=== PATIENT | male | born 1980 ===

== ENCOUNTER 2018-03-14 11:54 | Emergency (ER) | payer OTHER ==
[2018-03-14 11:57] VITALS: BMI 26.1
[2018-03-14 12:00] VITALS: O2SAT 99
--- NOTE | 2018-03-14 12:42 | ED PDOC ---
HPI: Back Time Seen by Provider: 03/14/18 12:14 Chief Complaint (Nursing): Back Pain Chief Complaint (Provider): Back Pain History Per: Patient History/Exam Limitations: no limitations Onset/Duration Of Symptoms: Days (since 20:00 yesterday) Current Symptoms Are (Timing): Still Present Additional Complaint(s): 37 year old male presents to the ED complaining of non-radiating right sided lower back pain since 20:00 yesterday. Patient states he had difficulty standing up from a seated position today, prompting ED evaluation. He describes the pain as a pulsating and squeezing pain, which is worse with movement and changing positions. Patient denies any fall, history of back surgery, or trauma. He indicates when pain is severe, he feels as if his legs will buckle. Denies fever, chest pain, abdominal pain, SOB, saddle anesthesia, numbness, weakness, n/v/d, or urinary symptoms(contrary to triage). 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 PMD: none Past Medical History Reviewed: Historical Data, Nursing Documentation, Vital Signs Vital Signs: Last Vital Signs Temp 98.1 F 03/14/18 11:57 Pulse 81 03/14/18 11:57 Resp 17 03/14/18 11:57 BP 128/76 03/14/18 11:57 Pulse Ox 99 03/14/18 11:57 - Medical History PMH: No Chronic Diseases - Surgical History Surgical History: No Surg Hx - Family History Family History: States: Unknown Family Hx - Social History Current smoker - smoking cessation education provided: No Alcohol: Social Drugs: Denies - Home Medications Home Medications: Ambulatory Orders Medication Instructions Recorded Cyclobenzaprine [Cyclobenzaprine 10 mg PO Q8 PRN #12 tab 03/14/18 HCl] Ibuprofen [Motrin Tab] 800 mg PO Q8 PRN #21 tab 03/14/18 - Allergies Allergies/Adverse Reactions: Allergies Allergy/AdvReac Type Severity Reaction Status Date / Time No Known Allergies Allergy Verified 03/14/18 11:57 Review of Systems ROS Statement: Except As Marked, All Systems Reviewed And Found Negative Constitutional: Negative for: Fever Cardiovascular: Negative for: Chest Pain Respiratory: Negative for: Shortness of Breath Gastrointestinal: Negative for: Nausea, Vomiting, Abdominal Pain, Diarrhea Genitourinary Male: Negative for: Dysuria, Hematuria, Penile Discharge Musculoskeletal: Positive for: Back Pain (Right lower back). Negative for: Other (saddle anesthesia) Physical Exam - Reviewed Nursing Documentation Reviewed: Yes Vital Signs Reviewed: Yes - Physical Exam Comments: GENERAL APPEARANCE: Patient is awake, alert, oriented x 3, in no acute distress. Ambulatory in ED with steady gait. Resting comfortably. SKIN: Warm, dry; (-) cyanosis. ENMT: Mucous membranes moist. Airway patent, (-) stridor. NECK: Supple, FROM CHEST AND RESPIRATORY: (-) rales, (-) rhonchi, (-) wheezes; breath sounds equal bilaterally. Respirations even and nonlabored. HEART AND CARDIOVASCULAR: (-) irregularity ABDOMEN AND GI: Soft; (-) tenderness; (-) distention (-) guarding (-) palpable mass. BACK: (+) right paralumbar tenderness, (-) direct bony/midline tenderness, (-) deformity. Straight leg raising (-) bilaterally. EXTREMITIES: (-) deformity. Distal pulses good bilaterally. NEURO AND PSYCH: Mental status as above. Intact sensation bilaterally; strength of lower extremities 5/5 bilaterally. Gait: steady. Speech: clear. (-) facial asymmetry (-) aphasia. - Laboratory Results Urine dip results: Negative for: Leukocyte Esterase, Blood, Nitrate, Ketones, Glucose, Bilirubin, Protein - ECG O2 Sat by Pulse Oximetry: 99 (RA) Pulse Ox Interpretation: Normal Medical Decision Making Medical Decision Making: Initial Impression: Acute back pain, probable muscle spasm Initial Plan: --ED urine dipstick --Flexeril 10mg PO (Not driving home) --Toradol 30mg IM --Re-evaluation 1410 Udip reviewed and unremarkable. On re-evaluation, patient reports improvement of symptoms and currently rates pain 2/10. On exam, patient remains AAOx3, in no acute distress. Lungs clear to auscultation, cardiac RRR, abdomen soft, non-tender, repeat neuro exam shows no focal findings. Vitals stable. Lab/Diagnostic results d/w the patient in great detail. Diagnosis of acute back pain, muscle spasm of back d/w the patient. Based on history, exam and diagnostic results, plan will be for outpatient follow up with clinic/ortho. Patient instructed to follow-up with pmd / referral provided / the clinic in 1- 2 days without fail. Advised to take medication as prescribed. Return to the emergency room at any time for any new or worsening symptoms. Patient states he fully agrees with and understands discharge instructions. States that he agrees with the plan and disposition. Verbalized and repeated discharge instructions and plan. I have given the patient opportunity to ask any additional questions. Scribe Attestation: Documented by Noel Collins acting as a scribe for Anastasia WILLIS. Provider Scribe Attestation: All medical record entries made by the Scribe were at my direction and personally dictated by me. I have reviewed the chart and agree that the record a ccurately reflects my personal performance of the history, physical exam, medical decision making, and the department course for this patient. I have also personally directed, reviewed, and agree with the discharge instructions and disposition. Disposition - Clinical Impression Clinical Impression: Low back pain, Muscle spasm of back - Patient ED Disposition Is Patient to be Admitted: No Counseled Patient/Family Regarding: Studies Performed, Diagnosis, Need For F [place]ow[place], Rx Given - Disposition Referrals: FAMILY PROVIDER,NO [Primary Care Provider] - Jalen Nick MD [Medical Doctor] - [facility] [Outside] Disposition: Routine/Home Disposition Time: 14:10 Condition: STABLE Additional Instructions: La atencin mdica de emergencia que recibi hoy estaba dirigida a calli sntomas agudos. Si le prescribieron algn medicamento, llnelo y tome segn las indicaciones. Calli sntomas pueden tardar varios zaidi en resolverse. Regrese al Departamento de Emergencia si calli sntomas empeoran, no mejoran o si tiene algn otro problema. Comunquese con regan mdico en 2 zaidi para zofia reevaluacin y seguimiento / o llame a jung de los mdicos / clnicas a los que love referido y que figura en el formulario de Informacin de visitas del paciente que se incluye en regan paquete de yuri. Traiga todos los documentos que recibi al momento del yuri junto con los medicamentos que est tomando en regan visita de seguimiento. Nuestro tratamiento no puede reemplazar la atencin mdica en curso por parte de un proveedor de atencin primaria (PCP) fuera del departamento de emergencias. Prescriptions: Cyclobenzaprine [Cyclobenzaprine HCl] 10 mg PO Q8 PRN #12 tab PRN Reason: Muscle Spasm Ibuprofen [Motrin Tab] 800 mg PO Q8 PRN #21 tab PRN Reason: Pain, Moderate (4-7) Instructions: Low Back Pain in Adults, Muscle Spasms (DC), Muscle and Bone Pain (DC), Lumbar Muscle Strain Forms: [facility] (Telugu) Print Language: YAKUT - POA Present On Arrival: None
[2018-03-14 15:11] VITALS: BP 122/76; PULSE 78; RESP 18; TEMP 98
== END 2018-03-14 14:30 | disposition home or self-care (01) ==
LOC: SUPCPDRO 11:54 → H.ER 11:54
DX: M54.5 Low back pain (principal); M62.830 Muscle spasm of back
CPT/HCPCS: 96372; 99283; J1885